=== PATIENT | male | born 1975 | race Caucasian/White ===

== ENCOUNTER 2019-06-24 06:26 | Emergency (ER) | payer MEDICARE, MEDICAID ==
[~2019-06-24] VITALS: Ht 177.8 cm; Wt 129.6 kg
[~2019-06-24 06:26] MED LIST: AMIT50TA PO; GEMF600T8 PO; LISI-170 PO; OMEP-110 PO; OXYC10TA6 PO; POTA99TA24 PO; PREG200C PO; SULF1TAB24 PO; TRAZ50TA66 PO
--- NOTE | 2019-06-24 06:51 | NUR ---
BIB [facility] - [facility], AROUND 2100 LAST NIGHT PT EXPERIENCING SLURRED SPEECH AND RIGHT HAND N/T. PT WOKE UP AROUND 0430, SPEECH STILL SLURRED AND HAVING INCREASED WEAKNESS IN RIGHT ARM. PT STATED TO EMS THAT HE TOOK AN ETRA OXYCODE THIS AM DUE TO ANKLE PAIN. PT PRESENTS SPEECH CLEAR, RIGHT ARM WEAKNESS, SATING 85% ON RA, SWELLING IN BILAT LOWER EXTREMITIES. EKG DONE, FLU SWAB DONE AND SENT TO LAB. PT IN CT AT THIS TIME. REPORT TO HAILY COTO.
--- NOTE | 2019-06-24 06:55 | NUR ---
RECEIVED BEDSIDE REPORT FROM NNAMDI VALENZUELA. PT BACK FROM CT. PT RUDE AND ARGUING WITH THIS RN AND PUMA MANN. PT DISRESPECTFUL. PT BEING EDUCATED REGARDING WANTING ICE CHIPS. PT EDUCATED FROM THIS RN AND DR. BARTHOLOMEW ABOUT MAKING SURE PT DOESN'T HAVE ANY ABNORMALITIES ON CT. PT CONTINUES TO ARGUE WITH DR. BARTHOLOMEW STATING "YOU'RE A LIAR. YOU DON'T HAVE TO STAND THERE. YOU ARE A LIAR."
[2019-06-24] MEDS ORDERED: SODIUM CHLORIDE FLUSH 10ML SYR IVF ONE (07:00)
[2019-06-24 07:09] LABS: BASOPHILS # (AUTO) 0.02 x10^3/uL (0-0.1); BASOPHILS % (AUTO) 0 % (0-1); EOSINOPHILS # (AUTO) 0.12 x10^3/uL (0-0.4); EOSINOPHILS % (AUTO) 1 % (1-7); LYMPHOCYTES # (AUTO) 0.41 x10^3/uL (1-3.4); LYMPHOCYTES % (AUTO) 3 % (22-44); MD NO; MEAN CORPUSCULAR HEMOGLOBIN 29.3 pg (27.5-34.5); MEAN CORPUSCULAR HGB CONC 32.6 g/dL (33.2-36.2); MEAN CORPUSCULAR VOLUME 89.9 fL (81-97); MEAN PLATELET VOLUME 9.3 fL (7.4-10.4); MONOCYTES # (AUTO) 0.67 x10^3/uL (0.2-0.8); MONOCYTES % (AUTO) 5 % (2-9); NEUTROPHILS # (AUTO) 11.87 x10^3/uL (1.8-6.8); NEUTROPHILS % (AUTO) 91 % (42-75); PLATELET COUNT 189 x10^3/uL (130-400); RED CELL DISTRIBUTION WIDTH 15.4 % (9.4-14.8)
--- NOTE | 2019-06-24 07:17 | NUR ---
PT GIVEN URINAL AND EDUCATED REGARDING NEED FOR SAMPLE. THIS RN EDUCATED GIRLFRIEND REGARDING NPO STATUS. PT REFUSING ASSESSMENT AT THIS TIME. GIRLFRIEND BEDSIDE.
[2019-06-24 07:19] LABS: ALANINE AMINOTRANSFERASE 37 U/L (12-78); ALBUMIN 3.5 g/dL (3.4-5.0); ANION GAP 6 mmol/L (5-15); CALCIUM 8.3 mg/dL (8.5-10.1); CHLORIDE 103 mmol/L (98-107)
[2019-06-24 07:24] LABS: ALKALINE PHOSPHATASE 85 U/L (45-117); BILIRUBIN,TOTAL 1.2 mg/dL (0.2-1.0); CREATININE 3.11 mg/dL (0.7-1.3); TOTAL PROTEIN 7.5 g/dL (6.4-8.2); TROPONIN I < 0.015 ng/mL (0.000-0.045)
--- NOTE | 2019-06-24 07:24 | NUR ---
PT ON OXYGEN AT THIS TIME. PT STATES "MY NORMAL SATURATION IS 92-93%. PT REMOVED OXYGEN AND DESATED TO 87%. PT PLACED BACK ON OXYGEN AT THIS TIME.
--- NOTE | 2019-06-24 07:26 | NUR ---
PT JUST DENIED WEARING HOME OXYGEN.
--- NOTE | 2019-06-24 07:26 | NUR ---
NO SLURRING OF SPEECH NOTICED. GIRLFRIEND BEDSIDE. NADN. PT STATES "I JUST CAME IN BECAUSE MY ANKLE HURTS."
--- NOTE | 2019-06-24 07:29 | NUR ---
PT STATES "I'VE ALREADY TOLD MY STORY 97 TIMES. YOU SHOULD KNOW." THIS RN APOLOGIZED AND STATED HE MAY HAVE TO TELL HIS STORY AGAIN. WILL CONTINUE TO MONITOR.
--- NOTE | 2019-06-24 07:32 | NUR ---
PT STATES "WHY DO I NEED A URINE SAMPLE IF I'M JUST HERE FOR MY ANKLE. I TRIPPED THIS MORNING AND SPRAINED MY ANKLE." THIS RN EDUCATED PT REGARDING NEED AND THE INFORMATION GIVEN IN REPORT REGARDING HIS STATEMENT OF "SLURRED SPEECH" WITH GIRLFRIEND BEDSIDE. PT STATES "WHY DO I NEED THAT? DOES IT EVEN MATTER THAT I HAVE STUFF OOZING OUT OF MY FOOT?" NO OBVIOUS "OOZING" OF FOOT. THIS RN STATED TO PT "EVERYTHING MATTERS TO US. THAT IS WHY WE ARE TRYING HELPING YOU AND RUNNING TESTS." CHEMO
[2019-06-24 07:54] LABS: RAPID INFLUENZA A Negative (Negative); RAPID INFLUENZA B Negative (Negative)
--- NOTE | 2019-06-24 07:54 | NUR ---
PT SITTING UP ON GURNEY. GIRLFRIEND BEDSIDE. NO NEEDS REQUESTED AT THIS TIME.
--- NOTE | 2019-06-24 07:59 | NUR ---
PT STATES "I'M NOT TAKING ANY ANTIBIOTICS NOW. THEY'VE BEEN DONE. WHY DO YOU KEEP ASKING?"
[2019-06-24] MEDS ORDERED: SODIUM CHLORIDE 0.9% 1,000ML IVBOLUS ONE (08:00)
[2019-06-24] MEDS ORDERED: CEFTRIAXONE PMX 1GM/50ML 50 ML IVPB ONE (08:30)
[2019-06-24] MEDS ORDERED: SODIUM CHLORIDE FLUSH 10ML SYR IVF PRN (08:30)
[2019-06-24] MEDS ORDERED: AZITHROMYCIN 500 MG in SODIUM CHLORIDE 0.9% 250 ML IVPB ONE (08:30)
[2019-06-24] MEDS ORDERED: CEFTRIAXONE PMX 1GM/50ML 50 ML ONE (08:37)
--- NOTE | 2019-06-24 08:55 | NUR ---
PER EDMD, DIET TRAY ORDERED.
--- NOTE | 2019-06-24 09:18 | NUR ---
DIET TRAY DELIVERED.
--- NOTE | 2019-06-24 09:24 | NUR ---
LATE ENTRY FOR 0800. VERBAL ORDER FROM DR. BARTHOLOMEW, 500mL BOLUS INSTEAD OF 1,000. D/T CHF
--- NOTE | 2019-06-24 09:58 | NUR ---
LATE ENTRY FOR 929: PT STATES "I JUST TRIED TO GET OUT OF THIS BED AND GET MY BAG. I CAN'T EVEN BEAR WEIGHT ON MY ANKLE." CHEMO. PT NOW ON HORACIO. Addendum: 06/24/19 at 1013 by LOPEZ PT EDUCATED REGARDING THE NEED TO CALL FOR HELP AND NOT GET OUT OF BED.
--- NOTE | 2019-06-24 10:01 | NUR ---
Pt assisted to BS commode after initially refusing stating, "I'm not shitting in my room". Explained that since he is unable to use leg, walking him to bathroom is unsafe. Still refused, spoke with primary nurse who confirmed & BS commode brought to pt. Stated he had to go bad enough that he'll use it this time. Call light within reach after transfer to notify when he needs help back to bed.
--- NOTE | 2019-06-24 10:14 | NUR ---
BEDSIDE REPORT TO NNAMDI KENNEY.
--- NOTE | 2019-06-24 10:14 | NUR ---
THIS RN IN TO ASSIST PT OFF BSC. PT STATES "I CHOSE TO GET OFF THE COMMODE BY MYSELF AND I STILL CAN'T PUT WEIGHT ON MY ANKLE. I FELL TO MY KNEE." PT ON KNEES RESTING UPPER BODY ON GURNEY. NO C/O HITTING HEAD. NO C/O ANY OTHER INJURY OR PAIN. PT WAS EDUCATED PRIOR TO CALL FOR HELP. PT ASSISTED TO [place]. CHEMO. PT REATTACHED TO ALL MONITORS.
--- NOTE | 2019-06-24 10:20 | NUR ---
HOSPITALIST MD [facility] BEDSIDE. PT READY TO TRANSFER TO ROOM 27
[2019-06-24] MEDS ORDERED: TRAZODONE 50MG TABLET PO PRN (10:30)
--- NOTE | 2019-06-24 10:31 | NUR ---
PT TRANSFERRED TO ROOM 27. ALL PERSONAL BELONGINGS WITH PT. INCLUDING SHOES AND CELL PHONE.
[2019-06-24 10:37] VITALS: BP 106/58
--- NOTE | 2019-06-24 10:45 | NUR ---
late entry 1045: pt uncooperative with all interventions and requests from staff. pt instructed not to get up or out of bed with out help and was educated on risks d/t low o2 and r ankle fx. even though call light is within reach, pt continues to get out of bed without help. pt also refuses to replace o2 when getting himself back to bed. iv nearly pulled out. while trying to replace/reinforce iv and take bp on opposite arm, pt became verbally aggressive and stated, "don't you know what you're doing? you said i had to keep this arm straight. now it's this arm? what are you even doing here?" pt reeducated that one arm has bp cuf and needs to be still and straight, and the other arm has and iv that is nearly out, so it need to be straight and still while being reiforced. pt angry and still uncooperative. this RN had to step out of room for several minutes and upon return, pt was reluctant but cooperative with interventions. vss. no needs expressed. call light within reach.
[2019-06-24] MEDS ORDERED: DOCUSATE 100 MG CAPSULE PO PRN (11:00)
[2019-06-24] MEDS ORDERED: ONDANSETRON 2MG/ML, 2ML IVPush PRN (11:00)
[2019-06-24] MEDS ORDERED: ONDANSETRON ODT 4 MG PO PRN (11:00)
[2019-06-24] MEDS ORDERED: BISACODYL 10 MG SUPP PR PRN (11:00)
[2019-06-24] MEDS ORDERED: AMPICILLIN/SULBACTAM 3 GM in SODIUM CHLORIDE 0.9% 100 ML IV SCH (11:00)
[2019-06-24] MEDS ORDERED: POLYETHYLENE GLYCOL 17 GM PACKET PO PRN (11:00)
[2019-06-24] MEDS ORDERED: OXYcodone IR 5MG TABLET PO PRN (11:00)
[2019-06-24] MEDS ORDERED: ACETAMINOPHEN 325 MG TABLET PO PRN (11:00)
[2019-06-24] MEDS ORDERED: LACTATED RINGERS 1,000 ML IV SCH (11:00)
[2019-06-24] MEDS ORDERED: morphine SULFATE 10 MG/ML, 1ML IVPush PRN (11:00)
[2019-06-24] MEDS ORDERED: hydrALAzine 20 MG/ML, 1ML IVPush PRN (11:00)
[2019-06-24] MEDS ORDERED: PROMETHAZINE 25 MG/ML, 1ML IM PRN (11:00)
[2019-06-24] MEDS ORDERED: HEPARIN 5,000 UNITS/ML, 1ML ONE (11:19)
[2019-06-24 11:28] LABS: HCT (SEDRATE) 31.5 % (39.2-51.8)
[2019-06-24] MEDS: HEPARIN 5,000 UNITS/ML, 1ML SQ SCH ×2 (11:33→11:36)
--- NOTE | 2019-06-24 11:38 | NUR ---
pt medicated per sep. vss. pt refusing prophy heparin. pt educated on risks and replies, "oh well. then i'll ." pt accepting ivabx. no needs expressed at this time. call light within reach. us at bs at this time. Addendum: 06/24/19 at 1156 by [email or web address] medications ordered from pharm.
[2019-06-24 11:42] LABS: FREE T4 (FREE THYROXINE) 1.11 ng/dL (0.76-1.46)
[2019-06-24] MEDS ORDERED: DAPTOMYCIN 520 MG in SODIUM CHLORIDE 0.9% 100 ML IV SCH (12:30)
--- NOTE | 2019-06-24 12:40 | NUR ---
TASK RN: PT REQUESTING TO USE URINAL, STS WOULD LAY DOWN IN BED TO USE IT D/T FRACTURED FOOT AND INABILITY TO KEEP A STEADY GAIT. PT FOUND STANDING BY THE BEDSIDE, THIS RN OFFERED A ONE ASSIST IF PT NEEDED TO STAND TO USE URINAL. PT BEGAN YELLING, TELLING STAFF TO JUST LEAVE HIM ALONE. PT INFORMED THAT IT WAS UNSAFE TO LEAVE HIM ALONE WHILE HE IS STANDING BECAUSE OF FALL RISK. PT REFUSING TO LISTEN, CONTINUED TO YELL AT STAFF STATING, "IM PAYING FOR THIS, I'LL DO WHAT I WANT. NOW GET OUT." PT STATS CONTINUING TO DROP PT STILL REFUSING TO PUT ON OXYGEN. PT STS WANTING TO LEAVE. AMA EXPLAINED TO PT. DR SIMON TO BEDSIDE TO DISCUSS AMA WITH PT. PT STILL REFUSING TO STAY AND BE TREATED AT THIS TIME. AMA FORM SIGNED, COPY PROVIDED TO PT UPON LEAVING UNIT.
--- NOTE | 2019-06-24 12:43 | NUR ---
pt found to be standing in room attempting to urinate by himself with o2 off despite education assemblies and installations inspector light use. pt offered 1 or 2 assist by this RN and another RN. pt aggravated that staff continued to tell him not to stand without help. pt threw urinal and sat back down in bed while refusing help. 2 RNs present to educate pt that pt safety is a priority and even though he may not like it, staff needs tp be present when he attempts to stand for any reason d/t high fall risk (high 02 needs, fractured right ankle). pt kept repeating, "i'm paying for this! i can do what i want! now leave so i can piss! get out!" pt requesting AMA. AMA paperwork provided and signed. IV and all monitoring equipment removed. pt refusing o2. wc provided. pt refusing help to . while transferring from chair to , pt lowered himself to ground onto his knees. pt able to sit himself back on chair. pt did not hit head and denies any trauma other than soreness to knees. pt refusing non-skid sock and chose to put on slippers. pt continued to refuse help to and was able to sucessfully transfer on second attempt. pt wheeled to exit. Addendum: 06/24/19 at [email or web address] Ireland notified of AMA request. Dr. Ireland to to educate pt on risk. pt states, "i don't care.! let me call my ride. i'm leaving!"
[2019-06-24] MEDS ORDERED: PREGABALIN 200 MG CAPSULE PO SCH (16:00)
[2019-06-24] MEDS ORDERED: GEMFIBROZIL 600 MG TABLET PO SCH (21:00)
[2019-06-24] MEDS ORDERED: AMITRIPTYLINE 50 MG TABLET PO SCH (21:00)
[2019-06-25] MEDS ORDERED: OMEPRAZOLE 20 MG CAPSULE.DR PO SCH (09:00)
== END 2019-06-24 13:02 | disposition left against medical advice (07) ==
LOC: ED 06:36 → EDIP 08:57 → UNDOADMIN 08:57 → ED 13:02
DX: R65.21 Severe sepsis with septic shock (principal); J96.00 Acute respiratory failure, unspecified whether with hypoxia or hypercapnia; S82.64XA Nondisplaced fracture of lateral malleolus of right fibula, initial encounter for closed fracture; R47.81 Slurred speech; I11.0 Hypertensive heart disease with heart failure; I50.1 Left ventricular failure, unspecified; E78.5 Hyperlipidemia, unspecified; K21.9 Gastro-esophageal reflux disease without esophagitis; G62.9 Polyneuropathy, unspecified; X58.XXXA Exposure to other specified factors, initial encounter; Y93.89 Activity, other specified; Y92.89 Other specified places as the place of occurrence of the external cause; Y99.8 Other external cause status
CPT/HCPCS: 29515; 36415; 70450; 71045; 73610; 76770; 80053; 83036; 83605; 83735; 83880; 84145; 84439; 84443; 84484; 85025; 85651; 86140; 87040; 87400; 93005; 96361; 96365; 96375; 99291; J0295; J0456; J0696; J7030; J7050; J7120

== ENCOUNTER 2019-12-29 22:45 | Emergency (ER) | payer MEDICARE, MEDICAID ==
[~2019-12-29] VITALS: Ht 180.3 cm; Wt 115.0 kg
[~2019-12-29 22:45] MED LIST changes: +AMOX1TAB64 PO; +BUPR600F2 BC; +CYCL-259 PO; +FURO40TA6 PO; +LINE600T15 PO
--- NOTE | 2019-12-29 23:08 | NUR ---
MD AT BEDSIDE TO EVALUATE PT.
[2019-12-29 23:25] VITALS: BP 142/89
--- NOTE | 2019-12-29 23:57 | NUR ---
Cleaned 2nd toe surgical incision w/ sutures on L foot w/ soap & water and rinsed with sterile saline. Pt states he has appt w/ client support associate on monday to have surgical site rechecked. removed torn out sutures that were only on one side of incision site. Dr. Hernandez is not going to put new sutures since pt has appt on monday. Dressed site w/ xeroform dressing and gauze. *Pt was de-satting in the 80s and falling asleep during wound cleaning and was unable to follow directions. Pt. admits to drinking prior to arrival and was getting aggitated with me while I was cleaning his wound. He stated that I "clearly have a terrible life and couldn't have more than five friends."
--- NOTE | 2019-12-30 00:02 | NUR ---
Patient given discharge instructions and they have confirmed that they understand the instructions. Patient ambulatory with steady gait.
== END 2019-12-30 00:04 | disposition home or self-care (01) ==
LOC: ED 23:55
DX: T81.30XA Disruption of wound, unspecified, initial encounter (principal); I11.0 Hypertensive heart disease with heart failure; I50.9 Heart failure, unspecified
CPT/HCPCS: 99282